=== PATIENT | male | born 1960 | race Caucasian/White ===

== ENCOUNTER 2021-06-03 12:12 | Emergency (ER) | payer BC ==
[~2021-06-03] VITALS: Ht 167.6 cm; Wt 113.6 kg
[~2021-06-03 12:12] MED LIST: BUSPAR DIVIDOSE15 MG; EFFEXOR-XR150 MG; LEVAQUIN 750MG750 MG PO; METRONIDAZOLE500 MG PO; NORVASC 5MG5 MG/TAB; PRINZIDE 12.5 M1 TA1; TOPROL XL 25MG25 MG PO; VICODIN 5/5001 UDTAB PO; ZESTRIL
[2021-06-03 12:22] VITALS: TEMP 98.5
[2021-06-03 13:02] LABS: BASO # 0.1 (0.0-0.2); BASO % 0.9 % (0.0-2.0); EOS # 0.2 (0.0-0.7); EOS % 2.1 % (0-4.0); GRAN # 6.1 (1.4-6.5); GRAN % 59.9 % (42.2-75.2); HEMOGLOBIN 14.5 g/dl (13.5-18.0); LYMPH # 2.8 (1.2-3.4); LYMPH % 27.3 % (20.0-51.0); MEAN CELL VOLUME 86 fl (80.0-100.0); MEAN CORPUSCULAR HEMOGLOBIN 28 pg (27.0-31.0); MEAN CORPUSCULAR HGB CONC 32 g/dl (33.0-37.0); MEAN PLATELET VOLUME 8.7 fl (7.4-10.4); MONO # 0.9 (0.1-0.6); MONO % 9.1 % (1.7-9.3); PLATELET COUNT 346 K/mm3 (130-400); RED BLOOD COUNT 5.22 M/mm3 (4.20-5.60); REDCELL DISTRIBUTION WIDTH-CV 13.3 % (11.5-14.5)
[2021-06-03 13:12] LABS: ALANINE AMINOTRANSFERASE 44 U/L (4-49); ALBUMIN 4.2 gm/dL (3.5-5.0); ALKALINE PHOSPHATASE 116 U/L (50-136); ANION GAP 4 mmol/L (7-16); AST,SGOT 30 U/L (15-37); BILIRUBIN,TOTAL 0.3 mg/dL (0.0-1.0); BLOOD UREA NITROGEN 15 mg/dL (9-20); CALCIUM 8.8 mg/dL (8.4-10.2); CARBON DIOXIDE 28 mmol/L (22-30); CHLORIDE 104 mmol/L (98-107); CREATININE, serum 0.79 (0.66-1.25); GLUCOSE 148 mg/dL (74-106); POTASSIUM 3.6 mmol/L (3.4-5.0); SODIUM 137 mmol/L (137-145)
[2021-06-03 13:25] LABS: TROPONIN-I < 0.012 ng/mL (0.000-0.035)
[2021-06-03 14:20] VITALS: BP 145/81
[2021-06-03] MEDS ORDERED: ANTIVERT 12.512.5 MG PO (14:58)
[2021-06-03 15:07] VITALS: PULSE 88
== END 2021-06-03 15:07 | disposition home or self-care (01) ==
LOC: COL.ER 12:12
PROVIDERS: Emergency Medicine
DX: H53.8 Other visual disturbances (principal); I49.3 Ventricular premature depolarization; R42 Dizziness and giddiness; E11.9 Type 2 diabetes mellitus without complications; I10 Essential (primary) hypertension; Z87.891 Personal history of nicotine dependence; Z79.899 Other long term (current) drug therapy
CPT/HCPCS: Q9967

== ENCOUNTER 2023-03-20 12:27 | Inpatient (IN) | payer BC ==
[~2023-03-20] VITALS: Ht 167.6 cm; Wt 109.5 kg
[~2023-03-20 12:27] MED LIST changes: +ANTIVERT 12.512.5 MG PO; -EFFEXOR-XR150 MG; +EFFEXOR-XR150 MG PO
[2023-03-20 13:09] LABS: BASO # 0.1 K/mm3 (0.0-0.2); BASO % 0.5 % (0.0-2.0); EOS # 0.2 K/mm3 (0.0-0.7); EOS % 1.7 % (0.0-4.0); GRAN # 6.6 K/mm3 (1.4-6.5); GRAN % 62.7 % (42.2-75.2); HEMATOCRIT 48.6 % (42.0-52.0); HEMOGLOBIN 16.9 g/dl (13.5-18.0); LYMPH # 2.1 K/mm3 (1.2-3.4); LYMPH % 20.3 % (20.0-51.0); MEAN CELL VOLUME 85 fl (80.0-100.0); MEAN CORPUSCULAR HEMOGLOBIN 29 pg (27-31); MEAN CORPUSCULAR HGB CONC 35 g/dl (33.0-37.0); MEAN PLATELET VOLUME 9.7 fl (7.4-10.4); MONO # 1.5 K/mm3 (0.1-0.6); MONO % 14.2 % (1.7-9.3); PLATELET COUNT 265 K/mm3 (130-400); RED BLOOD COUNT 5.75 M/mm3 (4.20-5.60); REDCELL DISTRIBUTION WIDTH-CV 13.1 % (11.5-14.5)
[2023-03-20 13:23] LABS: INR 1.1 (0.8-3.0); PROTHROMBIN TIME 12.1 SECONDS (9.7-12.8)
[2023-03-20 13:27] LABS: ALBUMIN 3.7 gm/dL (3.4-4.8); BILIRUBIN,TOTAL 0.6 mg/dL (0.2-1.2); CALCIUM 9.1 mg/dL (8.4-10.2); CREATININE, serum 1.45 mg/dL (0.72-1.25); TOTAL PROTEIN 7.1 gm/dL (6.2-8.1)
[2023-03-20] MEDS ORDERED: ASPIRIN E.C. 8181 MG PO (15:50)
[2023-03-20] MEDS ORDERED: PLAVIX 75MG TAB75 MG PO (15:51)
[2023-03-20] MEDS ORDERED: TOPROL XL100 MG PO (15:51)
[2023-03-20] MEDS ORDERED: LIPITOR 80MG80 MG PO (15:51)
[2023-03-20] MEDS ORDERED: NEURONTIN600 MG/TAB PO (15:52)
[2023-03-20] MEDS ORDERED: GLUCOPHAGE1000 MG PO (15:54)
[2023-03-20] MEDS ORDERED: NORVASC 5MG5 MG/TAB PO (15:54)
[2023-03-20] MEDS ORDERED: ZYRTEC 10MG10 MG PO (15:56)
[2023-03-20] MEDS ORDERED: NASACORT OTC NS (15:56)
--- NOTE | 2023-03-20 16:44 | NUR ---
PER MD NEUROLOGY AWARE OF CONSULT AND TO SEE PATIENT IN AM.
[2023-03-20 16:53] VITALS: BP 141/87; PULSE 71; TEMP 97.9
--- NOTE | 2023-03-20 17:30 | NUR ---
PATIENT ARIVED TO UNIT, AWAKE ALERT AND ORIENTED. PATIENTS VITAL SIGNS STABLE. WHILE DOING BEDSIDE SWALLOWED IT WAS NOTED PATIENT WILL NEED SET UP ASSIST FOR MEALS D/T R ARM/HAND WEAKNESS. PATIENT UNABLE TO OPEN CRACKERS, OR GRAPS STRAW WITH R HAND. PATIENT STATED HE WILL NEED A WALKER FOR AMBULATION. CALL LIGHT WITHIN REACH.
--- NOTE | 2023-03-20 17:30 | NUR ---
[facility] CALLED, THIS RN SPOKE DIRECTLY WITH PHARMACIST REGARDING CURRENT MEDICATIONS INCLUDING RECENT PRESCRIPTIONS AND NEW PRESCRIPTIONS PATIENT PICKED UP TODAY. MED LIST UPDATED, MADE AWARE OF CHANGES.
[2023-03-20 19:55] LABS: COLLECTION METHOD CLEAN CATCH
[2023-03-20 20:01] LABS: URINE APPEARANCE Clear (CLEAR/HAZY); URINE BLOOD Negative (NEGATIVE); URINE COLOR Yellow (YELLOW); URINE GLUCOSE Negative (NEGATIVE); URINE KETONE TRACE (NEGATIVE); URINE NITRATE Negative (NEGATIVE); URINE PROTEIN(semi-quant) 1+ (NEGATIVE)
[2023-03-20 20:02] LABS: MUCOUS Present (NOT PRESENT); SQUAMOUS EPITHELIAL 0-2 /hpf (0-10); URINE BACTERIA Rare /hpf (NONE SEEN); URINE RBC 0-2 /hpf (0-2)
[2023-03-20 20:10] VITALS: BP 147/66; PULSE 73; TEMP 98.1
[2023-03-20 21:00] VITALS: BP_SYST 147
[2023-03-20] MEDS ORDERED: DESYREL 100MG100 MG PO (22:57)
[2023-03-20 23:45] VITALS: BP 128/77; PULSE 75; TEMP 98
[2023-03-21] VITALS (8 sets, daily range): BP systolic 128–174; BP diastolic 79–89; PULSE 78–85; TEMP 97.4–98.4
--- NOTE | 2023-03-21 01:54 | NUR ---
02/18 2238 PT. CALLED ASKING TO TALK TO THE NURSE HE WANTED TO KNOW IF HE HAD GOTTEN ALL OF HIS HOME MEDS TONIGHT, ESPECIALLY HIS GABAPENTIN AND EFFEXOR, I LOOKED UP HIS MAR AND HIS HOME MED REC LIST, THE GABAPENTIN HAD NOT BEEN ORDERED FOR HIM TO TAKE HERE, SO I LET HIM KNOW THAT I COULD CALL THE PROVIDER AND SEE IF THEY WOULD ORDER IT FOR HIM, AND THE EFFEXOR WAS ORDERED DAILY, IN THE MORNING, PT, STATED THAT HE TAKES IT AT NIGHT, SO I LET HIM KNOW I WOULD MESSAGE THE PHARMACY TO SEE IF THEY COULD RETIME IT FOR HIM SO HE COULD GET IT TONIGHT INSTEAD. I CALLED NAHID URIARTE AND ASKED ABOUT THE GABAPENTIN, SHE SAID SHE WOULD ORDER IT FOR ME. THE PT.'S CALLED THE PT. HAD CALLED HER WHEN HE WAS DISTRAUGHT AND FREAKING OUT OVER HIS MEDS, SHE STATED THAT THE MED BOTTLE FOR EFFEXOR STATED THAT HE IS SUPPOSED TO BE TAKING IT BID AND NOT JUST DAILY, I UPDATED THE PT.'S MED REC LIST, AND NOTIFIED KALANI OF THE CHANGE, BUT WILL PASS ON TO THE DAY NURSE WELL IN CASE THE ORDER DOES NOT GET CHANGED BEFORE SHIFT CHANGE.
[2023-03-21 06:36] LABS: BASO # 0.1 K/mm3 (0.0-0.2); BASO % 0.9 % (0.0-2.0); EOS # 0.2 K/mm3 (0.0-0.7); EOS % 2.7 % (0.0-4.0); GRAN % 51.5 % (42.2-75.2); HEMATOCRIT 45.5 % (42.0-52.0); HEMOGLOBIN 15.4 g/dl (13.5-18.0); LYMPH # 2.1 K/mm3 (1.2-3.4); LYMPH % 27.4 % (20.0-51.0); MEAN CELL VOLUME 85 fl (80.0-100.0); MEAN CORPUSCULAR HEMOGLOBIN 29 pg (27-31); MEAN CORPUSCULAR HGB CONC 34 g/dl (33.0-37.0); MEAN PLATELET VOLUME 9.8 fl (7.4-10.4); MONO # 1.3 K/mm3 (0.1-0.6); MONO % 16.7 % (1.7-9.3); PLATELET COUNT 238 K/mm3 (130-400); RED BLOOD COUNT 5.37 M/mm3 (4.20-5.60)
[2023-03-21 06:37] LABS: ALBUMIN 3.4 gm/dL (3.4-4.8); BILIRUBIN,TOTAL 0.4 mg/dL (0.2-1.2); CALCIUM 8.5 mg/dL (8.4-10.2); CREATININE, serum 0.96 mg/dL (0.72-1.25); TOTAL PROTEIN 6.3 gm/dL (6.2-8.1)
--- NOTE | 2023-03-21 09:44 | NUR ---
SHIFT ASSESSMENT COMPLETED AND MORNING MEDICATIONS ADMINISTERED PER ORDER. PATIENT IS ALERT AND ORIENTED X4. DENIES PAIN. LUNGS CTA. SLIGHT RIGHT SIDED FACIAL DROOP NOTED, RIGHT HAND GRASP IS SLIGHTLY WEAKER THAN LEFT. PATIENT REQUESTED IV FLUIDS BE STOPPED, IV FLUIDS HELD AND GUSTABO WHITFIELD, UPDATED. PATIENT DENIES NEEDS AT THIS TIME. PENDING PT EVAL.
[2023-03-21] MEDS ORDERED: NORVASC 10MG10 MG PO (13:58)
--- NOTE | 2023-03-21 14:07 | NUR ---
SW met with patient and patients to complete intake and discuss discharge plan. Patients Denisse ([phone]) present at bedside. Patient scheduled to discharge later today. Patient is fully indpendent at home and does not utilize any DME to assist with mobility at home. PCP is and he utilizes [facility] for prescriptions. 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 ODIN reviewed therapy recs with patient and he would like to complete outpatient therapy through [facility] on the [facility] side. Clinical referral faxed to agency. Discharge plan: Home w/ out patient therapy
--- NOTE | 2023-03-21 16:43 | NUR ---
Discharge paperwork reviewed with the pt. Pt. voices understanding. INT discontinued from rt. ac. Pt. escorted out by wheelchair.
== END 2023-03-21 16:40 | disposition home or self-care (01) | DRG 65 ==
LOC: COL.ER 12:27 → MEDICAL 14:31
PROVIDERS: Personal Emergency Response Attendant; Physician Assistant; ADMIT Hospitalist
DX: I63.9 Cerebral infarction, unspecified (principal); I69.351 Hemiplegia and hemiparesis following cerebral infarction affecting right dominant side; N17.9 Acute kidney failure, unspecified; I10 Essential (primary) hypertension; F41.9 Anxiety disorder, unspecified; R29.707 NIHSS score 7; E78.5 Hyperlipidemia, unspecified; E11.9 Type 2 diabetes mellitus without complications; G47.33 Obstructive sleep apnea (adult) (pediatric); E66.01 Morbid (severe) obesity due to excess calories; F32.A Depression, unspecified; G47.00 Insomnia, unspecified; E78.1 Pure hyperglyceridemia; E86.0 Dehydration; Z87.891 Personal history of nicotine dependence; Z90.89 Acquired absence of other organs; I69.320 Aphasia following cerebral infarction; I69.322 Dysarthria following cerebral infarction; I69.392 Facial weakness following cerebral infarction; Z68.37 Body mass index [BMI] 37.0-37.9, adult
CPT/HCPCS: J1644; J7030